=== PATIENT | female | born 1965 | race Caucasian/White ===

== ENCOUNTER 2019-08-29 12:46 | Emergency (ER) | payer BC ==
[~2019-08-29] VITALS: Ht 160 cm; Wt 79.3 kg
[2019-08-29] MEDS ORDERED: normal saline 1000ML IV soln IVB ONE (15:30)
[2019-08-29] MEDS ORDERED: diphenhydrAMINE 50 mg/ml inj IV ONE (15:30)
[2019-08-29] MEDS ORDERED: ketorolac trometh. 30mg/ml inj. IV ONE (15:30)
[2019-08-29] MEDS ORDERED: metoclopramide 5 mg/ml inj IV ONE (15:30)
--- NOTE | 2019-08-29 16:10 | NUR ---
pt is resting quietly in the dark room, gave her a warm blanket, NS liter infusing w/o
[2019-08-29 17:31] VITALS: BP 139/73
== END 2019-08-29 20:23 | disposition home or self-care (01) ==
LOC: ER 12:47
DX: G43.909 Migraine, unspecified, not intractable, without status migrainosus (principal); E78.00 Pure hypercholesterolemia, unspecified; I10 Essential (primary) hypertension; F31.9 Bipolar disorder, unspecified; Z88.0 Allergy status to penicillin
CPT/HCPCS: 96374; 96375; 99283; J1200; J1885; J2765; J7030